=== PATIENT | female | born 1980 | race Hispanic/Latino ===

== ENCOUNTER 2020-01-23 21:14 | Emergency (ER) | payer MEDICAID ==
[~2020-01-23 21:14] MED LIST: PROMETHAZINE HCL 25 MG/ML 1ML AMPULE IM ONE
[2020-01-23] MEDS ORDERED: KETOROLAC TROMETHAMINE 30MG/ML ONE (21:44)
[2020-01-23] MEDS ORDERED: CYCLOBENZAPRINE HCL 10 MG TABLET ONE (21:44)
[2020-01-23] MEDS ORDERED: SODIUM CHLORIDE 0.9% 100 ML IV ONE (21:47)
[2020-01-23 21:58] LABS: BASOPHILS % (AUTO) 0.3 % (0.0-5.0); EOSINOPHILS % (AUTO) 0.1 % (0.0-8.0); HEMATOCRIT 36.7 % (36-48); LYMPHOCYTES % (AUTO) 17.1 % (21.0-51.0); MEAN CORPUSCULAR HEMOGLOBIN 26.7 pg (27.0-33.0); MEAN CORPUSCULAR HGB CONC 32.7 g/dL (32.0-36.0); MEAN CORPUSCULAR VOLUME 81.6 fL (79-99); MONOCYTES % (AUTO) 4.8 % (3.0-13.0); NEUTROPHILS % (AUTO) 77.3 % (40.0-77.0); PLATELET COUNT (AUTO) 410 K/uL (130-400)
[2020-01-23 22:12] LABS: CREATININE 0.9 mg/dL (0.5-1.5); POTASSIUM 3.4 mmol/L (3.5-5.1)
[2020-01-23 22:17] LABS: ALBUMIN 4.1 g/dL (3.5-5.0); TOTAL PROTEIN, SERUM 8.1 g/dL (6.0-8.3)
[2020-01-23] MEDS ORDERED: POTASSIUM CHLORIDE 20 MEQ ERTAB PO ONE (22:38)
[2020-01-23] MEDS ORDERED: SODIUM CHLORIDE 0.9% 1000ML 1,000 ML IV ONE (22:39)
== END 2020-01-23 23:40 | disposition home or self-care (01) ==
LOC: EDH 21:14
DX: G43.009 Migraine without aura, not intractable, without status migrainosus (principal); R11.2 Nausea with vomiting, unspecified; F41.9 Anxiety disorder, unspecified; Z98.890 Other specified postprocedural states
CPT/HCPCS: 36415; 80053; 85025; 96365; 96375; 99284; J1885; J2550; J7030

== ENCOUNTER 2020-11-12 17:38 | Emergency (ER) | payer MEDICAID ==
[~2020-11-12] VITALS: Ht 167.6 cm; Wt 81.6 kg
[2020-11-12 17:50] VITALS: BP 139/92
[2020-11-12 19:58] VITALS: BP 139/93
[2020-11-12] MEDS ORDERED: ACETAMINOPHEN 325 MG TAB PO ONE (20:30)
[2020-11-12] MEDS ORDERED: ONDANSETRON ODT 4MG TAB SL ONE (20:30)
== END 2020-11-12 20:14 | disposition home or self-care (01) ==
LOC: EDH 17:38
DX: S00.83XA Contusion of other part of head, initial encounter (principal); R42 Dizziness and giddiness; X58.XXXA Exposure to other specified factors, initial encounter; Y93.89 Activity, other specified; Y92.89 Other specified places as the place of occurrence of the external cause; Y99.8 Other external cause status
CPT/HCPCS: 70450

== ENCOUNTER 2021-12-28 13:50 | Emergency (ER) | payer MEDICAID ==
[~2021-12-28] VITALS: Ht 154.9 cm; Wt 79.8 kg
[2021-12-28 15:00] LABS: BASOPHILS % (AUTO) 0.8 % (0.0-5.0); HEMATOCRIT 37.7 % (36-48); LYMPHOCYTES % (AUTO) 33.5 % (21.0-51.0); MEAN CORPUSCULAR HGB CONC 32.1 g/dL (32.0-36.0); MEAN CORPUSCULAR VOLUME 81.1 fL (79-99); NEUTROPHILS % (AUTO) 58.4 % (40.0-77.0); PLATELET COUNT (AUTO) 405 K/uL (130-400); RED BLOOD CELL COUNT(AUTO) 4.65 MIL/uL (4.00-5.50); RED CELL DISTRIBUTION WIDTH 14.1 % (11.0-15.5); WHITE BLOOD COUNT (AUTO) 11.9 K/uL (4.8-10.8)
[2021-12-28] MEDS ORDERED: LORAZEPAM 1 MG TABLET PO ONE (15:00)
[2021-12-28 15:01] LABS: CREATININE 0.7 mg/dL (0.5-1.5); POTASSIUM 3.4 mmol/L (3.5-5.1)
[2021-12-28 15:16] LABS: TOTAL PROTEIN, SERUM 8.3 g/dL (6.0-8.3)
[2021-12-28] MEDS ORDERED: CITA-106 PO (15:34)
[2021-12-28] MEDS ORDERED: HYDR-3421 PO (15:34)
[2021-12-28 15:49] VITALS: BP 145/72
== END 2021-12-28 15:48 | disposition home or self-care (01) ==
LOC: EDH 13:50
DX: F41.9 Anxiety disorder, unspecified (principal); R07.89 Other chest pain; Z79.899 Other long term (current) drug therapy
CPT/HCPCS: 36415; 80053; 81025; 84443; 84484; 85025